=== PATIENT | male | born 2000 | race Caucasian/White ===

== ENCOUNTER 2020-07-21 20:10 | Emergency (ER) | payer OTHER ==
--- NOTE | 2020-07-21 20:57 | ED Physician Documentation ---
PD HPI HEENT - Stated complaint Stated Complaint: TOOTH PX - Chief complaint Chief Complaint: Heent - History obtained from History obtained from: Patient - History of Present Illness Timing - onset: Today Timing - duration: Hours Timing - details: Abrupt onset, Still present Location: Tooth Improves: Nothing Worsens: Other (nothing) Associated symptoms: No: Fever, Congestion, Rhinorrhea, Trismus, Unable to swallow, Swollen nodes, Facial swelling, Headache, Cough Similar symptoms before: Has not had sx before Recently seen: Not recently seen - Additional information Additional information: 19-year-old male has had a crown placed on a molar recently and the temporary crown that he has in place has come off. He has brought the crown with him and he called the advice line was told to come to the emergency department. The patient does not feel ill he does not have pain to the tooth or to the gum or face and he does have the crown with him. Review of Systems Constitutional: denies: Fever Eyes: denies: Decreased vision Ears: denies: Ear pain Nose: denies: Rhinorrhea / runny nose, Congestion Throat: reports: Other (Missing crown). denies: Dental pain / toothache, Sore throat Cardiac: denies: Chest pain / pressure, Palpitations Respiratory: denies: Dyspnea, Cough GI: denies: Abdominal Pain, Abdominal Swelling, Nausea, Vomiting : denies: Dysuria PD PAST MEDICAL HISTORY - Past Medical History Past Medical History: No - Past Surgical History Past Surgical History: No - Allergies Allergies/Adverse Reactions: Allergies Allergy/AdvReac Type Severity Reaction Status Date / Time codeine Allergy Hives Verified 07/21/20 20:18 diazepam [From Valium] Allergy Respiratory Verified 07/21/20 20:18 midazolam [From Versed] Allergy Respiratory Verified 07/21/20 20:18 - Social History Does the pt smoke?: No Smoking Status: Never smoker Does the pt drink ETOH?: Yes Does the pt have substance abuse?: No - Immunizations Immunizations are current?: Yes - POLST Patient has POLST: No PD ED PE NORMAL - Vitals Vital signs reviewed: Yes (hypertensive ) - General General: Alert and oriented X 3, No acute distress, Well developed/nourished - HEENT HEENT: Atraumatic, PERRL, EOMI, Other (There is a crown to #19 that is missing. The patient has the temporary and this fits snuggly to the socket. ) - Respiratory Respiratory: No respiratory distress - Derm Derm: Normal color, Warm and dry, No rash - Extremities Extremities: No deformity, No edema - Neuro Neuro: Alert and oriented X 3, pepper cutter 2-12 intact, No motor deficit, No sensory deficit, Normal speech Eye Opening: Spontaneous Motor: Obeys Commands Verbal: Oriented GCS Score: 15 - Psych Psych: Normal mood, Normal affect Results - Vitals Vitals: Vital Signs - 24 hr 07/21/20 07/21/20 07/21/20 20:18 20:24 20:58 Temperature 36.9 C 36.9 C 36.9 C Heart Rate 83 81 78 Respiratory 18 18 17 Rate Blood Pressure 168/89 H 155/81 H 135/79 H O2 Saturation 99 99 98 Oxygen O2 Source Room air PD MEDICAL DECISION MAKING - ED course Complexity details: considered differential ED course: 19-year-old male with a temporary crown that has been avulsed has the crown intact and this is placed back onto the tooth without cement. He knows this will come off and he will take this off [facility]He will follow-up with his dentist. Departure - Departure Disposition: 01 Home, Self Care Clinical Impression: Fracture of crown, enamel, and dentin of tooth without pulp exposure Condition: Stable Instructions: Crowns Tooth Tx Restore Follow-Up: [facility] [Provider Group] Comments: Follow-up with your dentist [facility] [place] [facility] tomorrow by telephone and expect to have some repair of this in the next week. Discharge Date/Time: 07/21/20 20:58
[2020-07-21 21:01] VITALS: BP 135/79
== END 2020-07-21 20:58 | disposition home or self-care (01) ==
LOC: ED 20:10
DX: K08.530 Fractured dental restorative material without loss of material (principal)
CPT/HCPCS: 99281; 99284

== ENCOUNTER 2020-11-28 13:54 | Emergency (ER) | payer OTHER ==
[2020-11-28 14:02] VITALS: BP 134/85
--- NOTE | 2020-11-28 15:19 | ED Physician Documentation ---
PD HPI BACK PAIN - Stated complaint Stated Complaint: LOW BACK PAIN - Chief complaint Chief Complaint: Back Pain - History obtained from History obtained from: Patient - History of Present Illness Timing - onset: Chronic Timing - duration: Years Timing - details: Gradual onset Pain level max: 8 Pain level now: 5 Location: Mid, Lower, Right, Left Quality: Pain, Spasm, Similar to prior episodes Associated symptoms: No: Fever, Weakness, Numbness, Incontinent of urine, Unable to urinate, Hematuria, Incontinent of stool Improves with: Rest Worsened by: Movement Contributing factors: Lifting. No: Twisting, Trauma, Anticoagulated, Cancer, IVDA, Out of meds - Additional information Additional information: Patient is a 21-year-old male who presents to the emergency department with chronic back pain. He is active duty [place]. Currently undergoing Physical therapy. He has had x-rays of his back. He states that he has increased pain when he is pushing heavy objects. Worse with movement, better with rest. He states Motrin is not helping. Has never been on muscle relaxants. No loss of bowel or bladder control. No recent injury. No fevers. No chills. No IV drug use. No numbness or tingling. Review of Systems Constitutional: denies: Fever, Chills GI: denies: Vomiting, Diarrhea Skin: denies: Rash Musculoskeletal: denies: Neck pain Neurologic: denies: Focal weakness, Numbness, Confused, Headache PD PAST MEDICAL HISTORY - Past Medical History Past Medical History: Yes Musculoskeletal: Chronic back pain - Past Surgical History Past Surgical History: No - Present Medications Home Medications: Ambulatory Orders Medication Instructions Recorded Confirmed Meloxicam [Mobic] 7.5 mg PO BID PRN #20 tablet 11/28/20 methocarbamoL [Robaxin] 500 mg PO Q6H PRN #20 tablet 11/28/20 methylPREDNISolone [Medrol] 4 mg PO DAILY #1 11/28/20 - Allergies Allergies/Adverse Reactions: Allergies Allergy/AdvReac Type Severity Reaction Status Date / Time codeine Allergy Hives Verified 11/28/20 13:57 diazepam [From Valium] Allergy Respiratory Verified 11/28/20 13:57 midazolam [From Versed] Allergy Respiratory Verified 11/28/20 13:57 - Living Situation Living Arrangement: reports: At home - Social History Does the pt smoke?: No Smoking Status: Never smoker Does the pt drink ETOH?: Yes Does the pt have substance abuse?: No - Immunizations Immunizations are current?: Yes - POLST Patient has POLST: No PD ED PE NORMAL - Vitals Vital signs reviewed: Yes - General General: Alert and oriented X 3, No acute distress, Well developed/nourished - HEENT HEENT: Moist mucous membranes - Neck Neck: Supple, no meningeal sign - Cardiac Cardiac: RRR, Strong equal pulses - Respiratory Respiratory: No respiratory distress, Clear bilaterally - Abdomen Abdomen: Soft, Non tender, Non distended - Back Back: No spinal TTP, Other (No spasm currently) - Derm Derm: Warm and dry - Extremities Extremities: No edema - Neuro Neuro: Alert and oriented X 3, No motor deficit, No sensory deficit, Other (Normal bilateral lower extremity patellar and ankle jerk reflexes. Normal great toe extension bilaterally. no saddle anesthesia) Eye Opening: Spontaneous Motor: Obeys Commands Verbal: Oriented GCS Score: 15 - Psych Psych: Normal mood, Normal affect Results - Vitals Vitals: Vital Signs - 24 hr 11/28/20 13:57 Temperature 36.5 C Heart Rate 77 Respiratory 16 Rate Blood Pressure 134/85 H O2 Saturation 98 Oxygen O2 Source Room air PD MEDICAL DECISION MAKING - ED course Complexity details: considered differential (No cauda equina, no spinal epidural abscess, no fracture, no aortic dissection or evidence of aneursym rupture), d/w patient ED course: 20-year-old male with chronic back pain. No evidence of cauda equina, epidural abscess. No evidence of fracture. No indication for imaging. Normal neuro exam. Will place on meloxicam, Robaxin and Medrol Dosepak for home. We will have him follow-up with his doctor for further care. We will have him continue his physical therapy as well. No indication for emergent MRI. Patient counseled regarding signs and symptoms for which I believe and urgent re- evaluation would be necessary. Patient with good understanding of and agreement to plan and is comfortable going home at this time This document was made in part using voice recognition software. While efforts are made to proofread this document, sound alike and grammatical errors may occur. Departure - Departure Disposition: 01 Home, Self Care Clinical Impression: Back spasm Chronic back pain Qualifiers: Back pain location: low back pain Back pain laterality: bilateral Sciatica presence: without sciatica Qualified Code(s): M54.5 - Low back pain; G89.29 - Other chronic pain Condition: Good Instructions: ED Spasm Back No Trauma, ED Neck Back Pain General Follow-Up: your,doctor in 1 week [Other] Prescriptions: methylPREDNISolone [Medrol] 4 mg PO DAILY #1 Meloxicam [Mobic] 7.5 mg PO BID PRN #20 tablet PRN Reason: Pain methocarbamoL [Robaxin] 500 mg PO Q6H PRN #20 tablet PRN Reason: muscle spasm Comments: Follow-up with your doctor for further care. You can use the Robaxin as needed for spasm. The meloxicam should help with the pain. Continue to gently stretch your back and continue your physical therapy.
[2020-11-28] MEDS ORDERED: methocarbamoL 500 MG TABLET PO STA (15:27)
[2020-11-28] MEDS ORDERED: MELOXICAM 7.5 MG TABLET PO STA (15:27)
== END 2020-11-28 15:41 | disposition home or self-care (01) ==
LOC: ED 13:54
DX: M62.830 Muscle spasm of back (principal); G89.29 Other chronic pain
CPT/HCPCS: 99283; 99284; A9270

== ENCOUNTER 2020-12-27 12:14 | Outpatient (CLI) | payer OTHER ==
--- NOTE | 2020-12-27 13:13 | MRI Report ---
PROCEDURE: Lumbar Spine W/O INDICATIONS: Low back pain TECHNIQUE: Noncontrast sagittal T1 spin echo and T2 fast echo, sagittal STIR, axial T1 and T2 fast spin echo thr ough the lumbar spine. In cases with scoliosis, additional coronal T2 fast spin echo may be performe d. COMPARISON: None. FINDINGS: Image quality: Excellent. Alignment and Curvature: There is normal bony alignment. Bone Marrow: Marrow is of normal overall signal. No acute vertebral body compression fractures. Spinal Cord: Conus medullaris terminates at the normal level. Visualized cord demonstrates normal s ignal and size. Paraspinous Soft Tissues: No paravertebral masses. T12-L1: Normal in appearance. L1-L2: Normal in appearance. L2-L3: Normal in appearance. L3-L4: Mild disc desiccation and disc height loss without disc bulge or protrusion. No spinal canal or neural foraminal stenosis. L4-L5: Mild disc desiccation and disc height loss. No disc bulge or protrusion. No spinal canal steno sis or neural foraminal narrowing. L5-S1: Disc desiccation and disc height loss. Shallow disc bulge without mass effect upon the thecal sac or traversing S1 nerve roots. No neural foraminal stenosis. IMPRESSION: Minimal degenerative changes in the lower lumbar spine. No spinal canal stenosis, neural foraminal stenosis, or findings of focal nerve root impingement. No imaging explanation for low back pain. Reviewed by: Fernando Soria MD on 12/27/2020 1:12 PM PDT Approved by: Fernando Soria MD on 12/27/2020 1:12 PM PDT Station ID: [id number]
== END 2020-12-27 12:15 | disposition home or self-care (01) ==
LOC: DI 12:14
DX: M54.5 Low back pain (principal); M51.36 Other intervertebral disc degeneration, lumbar region; M51.37 Other intervertebral disc degeneration, lumbosacral region

== ENCOUNTER 2021-07-24 20:35 | Emergency (ER) | payer OTHER ==
--- OUTSIDE RECORDS SUMMARY | 2021-07-24 21:05 | EXTERNAL MEDICAL SUMMARY RPT | Continuity of Care Document ---
:2000 Author Organization [facility] Address [address] [place] [address] Phone Care Team Providers Name Role Phone Crew, Valentina Maciel Unavailable Unavailable Allergies No information. Encounters No information. Medications date description facility 20210719 Acetaminophen 325 MG / Hydrocodone Luci rtrate 5 MG Oral [facility] Tablet 20210719 tramadol hydrochloride 50 MG Oral Table t [facility] 20210719 {21 (Methylprednisolone 4 MG Oral Table t) } [facility] 20210719 Omeprazole 20 MG Enteric Coated Capsule [facility] Problems Procedures date description facility 20210719 [facility] Results No information. Vital Signs date measurement value source 20210719 weight_standard 104.33 lb 20210719 weight_metric 47.32 kg 20210719 temperature_standard 97.9 F 20210719 temperature_metric 36.61 C 20210719 respiration_rate 18 /min 20210719 height_standard 73 in 20210719 height_metric 185.42 cm 20210719 heart_rate 76 /min 20210719 BP_systolic 122 mm[Hg] 20210719 BP_diastolic 87 mm[Hg] 20210719 BMI 30.3 kg/m2
[2021-07-24 23:12] LABS: RAPID STREP SCREEN Negative (Negative)
--- NOTE | 2021-07-24 23:14 | XRAY Report ---
PROCEDURE: Chest 1 View X-Ray INDICATIONS: cough TECHNIQUE: One view of the chest was acquired. COMPARISON: None FINDINGS: Surgical changes and devices: None. Lungs and pleura: No pleural effusions or pneumothorax. Lungs are clear. Mediastinum: Mediastinal contours appear normal. Heart size is normal. Bones and chest wall: No suspicious bony lesions. Overlying soft tissues appear unremarkable. IMPRESSION: No acute cardiopulmonary disease process. Reviewed by: Carito Wright MD, PhD on 07/24/2021 11:13 PM PDT Approved by: Carito Wright MD, PhD on 07/24/2021 11:13 PM PDT Station ID: [id number]
--- NOTE | 2021-07-24 23:43 | ED Physician Documentation ---
PD HPI URI - Stated complaint Stated Complaint: BLOODY PHLEGM, SORE THRAOT, HEADACHE - Chief complaint Chief Complaint: Heent - History obtained from History obtained from: Patient - Additional information Additional information: Patient presenting for evaluation of sore throat,Productive cough of green sputum which has been blood-streaked And generalized malaise For 3 days. His significant other is in the emergency department with similar symptoms. He has been vaccinated for Covid and has had 2 recent negative Covid test today.He has been living in housing since January here and recently found out that his current residence has possible mold or mildew issues which is being remediated. He called the [facility] nurse advice line which encouraged the patient to come to the emergency department this evening for testing for possible mold exposure.Patient denies fever, chest pain, difficulty breathing. He does report a history of low back pain and is currently using steroids and anti-inflammatory medications for that. He denies abdominal pain, vomiting, diarrhea, numbness, focal weakness. Review of Systems Ten Systems: 10 systems reviewed and negative Constitutional: denies: Fever Nose: reports: Congestion Throat: reports: Sore throat Cardiac: denies: Chest pain / pressure, Palpitations Respiratory: denies: Dyspnea GI: denies: Abdominal Pain, Nausea, Vomiting : denies: Dysuria Skin: denies: Rash Musculoskeletal: reports: Back pain Neurologic: denies: Focal weakness, Numbness, Syncope PD PAST MEDICAL HISTORY - Past Medical History Musculoskeletal: Chronic back pain - Past Surgical History Past Surgical History: No - Present Medications Home Medications: Ambulatory Orders Medication Instructions Recorded Confirmed methylPREDNISolone [Medrol] 4 mg PO DAILY #1 11/28/20 07/24/21 HYDROcod/ACETAM 5/325 [[place] 5/325] 1 tab PO Q6HR PRN 07/24/21 07/24/21 Omeprazole Magnesium 20 mg PO DAILY 07/24/21 07/24/21 traMADol [Ultram] 50 mg PO BID PRN 07/24/21 07/24/21 - Allergies Allergies/Adverse Reactions: Allergies Allergy/AdvReac Type Severity Reaction Status Date / Time codeine Allergy Hives Verified 07/24/21 20:46 diazepam [From Valium] Allergy Respiratory Verified 07/24/21 20:46 midazolam [From Versed] Allergy Respiratory Verified 07/24/21 20:46 - Social History Does the pt smoke?: No Smoking Status: Never smoker Does the pt drink ETOH?: Yes Does the pt have substance abuse?: No - Immunizations Immunizations are current?: Yes - POLST Patient has POLST: No PD ED PE NORMAL - General General: Alert and oriented X 3, No acute distress, Well developed/nourished - HEENT HEENT: Atraumatic, PERRL, EOMI, Ears normal, Moist mucous membranes, Pharynx benign, Dentition benign, Other (No tonsillar exudate or signs of peritonsillar abscess, normal Voice, no trismus,Mild posterior pharyngeal erythema, No significant lymphadenopathy) - Neck Neck: Supple, no meningeal sign, No adenopathy - Cardiac Cardiac: RRR, No murmur, Strong equal pulses - Respiratory Respiratory: No respiratory distress, Clear bilaterally - Abdomen Abdomen: Normal bowel sounds, Non tender - Derm Derm: Normal color - Extremities Extremities: No deformity, No edema - Neuro Neuro: Alert and oriented X 3, No motor deficit, Normal speech - Psych Psych: Normal mood, Normal affect Results - Vitals Vitals: Vital Signs - 24 hr 07/24/21 07/24/21 20:42 23:54 Temperature 37 C 36.9 C Heart Rate 104 H 89 Respiratory 18 18 Rate Blood Pressure 150/87 H 144/80 H O2 Saturation 97 98 Oxygen O2 Source Room air - Labs Labs: Laboratory Tests 07/24/21 22:50 Group A Strep Rapid Negative PD MEDICAL DECISION MAKING - ED course ED course: Patient presenting for evaluation of sore throat and nasal congestion withProductive cough. Patient is concerned due to recent mold exposure.Patient is overall very well-appearing, has no signs of airway compromise and does not appear septic. Rapid strep is negative. He has additionally recently had 2 - Covid test.Chest x-ray is clear. His symptoms could be due to a viral process. I did encourage close follow-up with his primary care doctor, particularly if he is concerned about possible exposure to mold for further testing.Discussed continuing with supportive care. Departure - Departure Disposition: 01 Home, Self Care Clinical Impression: Sore throat, Suspected exposure to mold Condition: Stable Instructions: Allergens Mold, Sore Throats Self Care Comments: Your strep test was negative. Your sore throat could be caused by a number of factors including a viral illness.Please continue with supportive care recommendations as we discussed such as anti-inflammatory medications like ibuprofen and salt water gargle. Please also follow-up with your primary care doctor to discuss mold testing as this is not performed in the emergency department. Forms: Activity restrictions Discharge Date/Time: 07/24/21 23:54
[2021-07-24 23:56] VITALS: BP 144/80
== END 2021-07-24 23:54 | disposition home or self-care (01) ==
LOC: ED 20:35
DX: J02.9 Acute pharyngitis, unspecified (principal); Z77.120 Contact with and (suspected) exposure to mold (toxic)
CPT/HCPCS: 87070; 87430; 99282; 99284

== ENCOUNTER 2021-10-24 07:04 | Outpatient (CLI) | payer OTHER ==
--- NOTE | 2021-10-24 08:44 | MRI Report ---
PROCEDURE: Lumbar Spine W/O INDICATIONS: LOW BACK PAIN TECHNIQUE: Noncontrast sagittal T1 spin echo and T2 fast echo, sagittal STIR, axial T1 and T2 fast spin echo thr ough the lumbar spine. In cases with scoliosis, additional coronal T2 fast spin echo may be performe d. COMPARISON: None. FINDINGS: Image quality: Excellent. Alignment and Curvature: There is normal bony alignment. Bone Marrow: Marrow is of normal overall signal. No acute vertebral body compression fractures. Spinal Cord: Conus medullaris terminates at the L1-L2 level. Visualized cord demonstrates normal si gnal and size. Paraspinous Soft Tissues: No paravertebral masses. T12-L1: Normal in appearance. L1-L2: Normal in appearance. L2-L3: Normal in appearance. L3-L4: No canal stenosis or foraminal stenosis. L4-L5: Unchanged. Minimal disc bulge. No canal stenosis or foraminal stenosis. L5-S1: Unchanged. Disc desiccation and disc height loss. Disc bulge. No canal stenosis or foraminal stenosis. IMPRESSION: Stable findings. Mild degenerative change. No canal stenosis or foraminal stenosis. Reviewed by: Bernard Lynn MD on 10/24/2021 8:42 AM PDT Approved by: Bernard Lynn MD on 10/24/2021 8:42 AM PDT Station ID: [id number]
== END 2021-10-24 07:05 | disposition home or self-care (01) ==
LOC: DI 07:04
PROVIDERS: ATTEND Family Medicine
DX: M51.37 Other intervertebral disc degeneration, lumbosacral region (principal)

== ENCOUNTER 2021-12-10 17:42 | Emergency (ER) | payer OTHER ==
[2021-12-10] MEDS ORDERED: KETOROLAC 15 MG/ML VIAL IVP STA (18:11)
[2021-12-10] MEDS ORDERED: SODIUM CHLORIDE 0.9% 1,000 ML IV STA (18:11)
[2021-12-10] MEDS ORDERED: HYDROmorphone 1 MG/ML CARPUJECT IVP STA (18:11)
[2021-12-10] MEDS ORDERED: ACETAMINOPHEN 500 MG TABLET PO STA (18:12)
--- NOTE | 2021-12-10 18:14 | ED Physician Documentation ---
History of Present Illness - Stated complaint Stated Complaint: COVID SYMPTOMS - Chief complaint Chief Complaint: General - History obtained from History obtained from: Patient - Additonal information Additional information: Otherwise healthy 21-year-old gentleman with chronic back pain, active duty [place]. He is vaccinated against COVID. His got sick with COVID about 3 days ago and is improving. He became acutely ill this morning with fevers, chills, body aches, headache. Minimal sore throat or cough. Review of Systems Ten Systems: 10 systems reviewed and negative Constitutional: reports: Fever, Chills, Myalgias, Fatigue Throat: denies: Sore throat Respiratory: denies: Dyspnea, Cough PD PAST MEDICAL HISTORY - Past Medical History Past Medical History: Yes Cardiovascular: None Respiratory: None Neuro: Headaches Endocrine/Autoimmune: None GI: GERD : None HEENT: None Psych: None Musculoskeletal: Chronic back pain Derm: None - Past Surgical History Past Surgical History: No - Present Medications Home Medications: Ambulatory Orders Medication Instructions Recorded Confirmed HYDROcod/ACETAM 5/325 [[place] 5/325] 1 tab PO Q6HR PRN 07/24/21 12/10/21 Omeprazole Magnesium 20 mg PO DAILY 07/24/21 12/10/21 traMADol [Ultram] 50 mg PO BID PRN 07/24/21 12/10/21 Cyclobenzaprine [Flexeril] 10 mg PO TID PRN 12/10/21 12/10/21 Meloxicam [Mobic] 15 mg PO DAILY PRN 12/10/21 12/10/21 Zolmitriptan [Zomig] 5 mg PO DAILY PRN 12/10/21 12/10/21 - Allergies Allergies/Adverse Reactions: Allergies Allergy/AdvReac Type Severity Reaction Status Date / Time codeine Allergy Hives Verified 12/10/21 17:48 diazepam [From Valium] Allergy Respiratory Verified 12/10/21 17:48 midazolam [From Versed] Allergy Respiratory Verified 12/10/21 17:48 - Social History Does the pt smoke?: No Smoking Status: Never smoker Does the pt drink ETOH?: Yes Does the pt have substance abuse?: No - Immunizations Immunizations are current?: Yes - POLST Patient has POLST: No PD ED PE NORMAL - Vitals Vital signs reviewed: Yes - General General: Alert and oriented X 3, No acute distress - HEENT HEENT: PERRL, EOMI - Neck Neck: Supple, no meningeal sign, No bony TTP - Cardiac Cardiac: Other (Tachycardic, regular, no murmur) - Respiratory Respiratory: No respiratory distress, Clear bilaterally - Abdomen Abdomen: Non tender - Back Back: No CVA TTP, No spinal TTP - Derm Derm: Normal color, Warm and dry, No rash - Neuro Neuro: Alert and oriented X 3, Normal speech Results - Vitals Vitals: Vital Signs - 24 hr 12/10/21 12/10/21 12/10/21 17:48 17:53 19:14 Temperature 38.5 C H 38.5 C H 37.7 C Heart Rate 121 H 121 H 100 Respiratory 20 20 16 Rate Blood Pressure 124/86 H 124/86 H 123/74 O2 Saturation 97 97 98 Oxygen O2 Source Room air - Labs Labs: Laboratory Tests 12/10/21 18:32 Sodium 137 Potassium 3.4 L Chloride 101 Carbon Dioxide 27 Anion Gap 9.0 BUN 12 Creatinine 1.2 Estimated GFR (MDRD) 75 L Glucose 100 Calcium 9.1 PD MEDICAL DECISION MAKING - ED course ED course: 21-year-old gentleman with kind of a classic viral syndrome with his having COVID. He is likely positive. Given his young age and vaccinated status he was not offered antivirals, noting that he is also without underlying significant health issue. He received some IV fluids and antipyretics and pain medication here with improvement in both how he was feeling as well as his vital signs. Departure - Departure Disposition: 01 Home, Self Care Clinical Impression: Viral syndrome Condition: Good Record reviewed to determine appropriate education?: Yes Instructions: ED Viral Syndrome Comments: You have a Covid test pending. You need to self quarantine until the result is done and negative. Do not leave your house. Do not get near anybody. The results should be done in 48 to 72 hours. We will call with a positive result, the fastest way to get a negative result for confirmation though is to go to the hospital website at [email or web address], click on the my [employer] tab and sign up for the patient portal. Return for new or worsening symptoms. Tylenol and/or ibuprofen as needed for aches and pains which should hopefully be much better after initial treatment tonight. Forms: Activity restrictions
[2021-12-10 18:47] LABS: CALCIUM 9.1 mg/dL (8.5-10.3); CREATININE 1.2 mg/dL (0.6-1.2); POTASSIUM 3.4 mmol/L (3.5-5.0)
[2021-12-10 19:15] VITALS: BP 123/74
[2021-12-10] MEDS ORDERED: oxyCODONE/ACET 5/325 Prepack 4 PO STA (19:17)
== END 2021-12-10 19:25 | disposition home or self-care (01) ==
LOC: ED 17:42
DX: U07.1 COVID-19 (principal); B34.9 Viral infection, unspecified
CPT/HCPCS: 36415; 80048; 87635; 96374; 99282; 99283; A9270; J1170

== ENCOUNTER 2022-02-01 09:07 | Outpatient (CLI) | payer OTHER ==
[2022-02-01 09:50] VITALS: BP 124/70
--- NOTE | 2022-02-01 09:50 | SLEEP CARE CONSULTATION ---
Information from patient questionnaire entered by Sasha Hay MA. I have reviewed and concur with the information entered by Sasha Hay MA. This document represents the service I personally performed and the decisions made by me, Lucy Mendoza ARNP. History of Present Illness Service Date and Time: 02/01/2022 0907 Reason for Visit: New patient Chief Complaint: reports: Insomnia, Unrefreshed sleep, Snoring, Excessive daytime sleepiness, Frequent awakenings at night Date of Onset: 2020 Usual bedtime: 10 PM Time it takes to fall asleep: 3 HRS Snores at night: Yes Observed to quit breathing while asleep: No Sleeps alone due to snoring: No Number of times waking at night: 3 Reasons for waking at night: reports: Pain (chronic back pain), Other (UNKNOWN). denies: Choking, Snoring, Gasping for air Toss, Turn, or Twitch while sleeping: Yes Recalls having dreams: Yes (sometimes) Usually gets out of bed at: 6AM Feels refreshed in the morning: No Morning headache: Yes (1 time a week) Sleepy or fatigued during the day: Yes Ever fallen asleep while driving: No Takes day naps: Yes (most days he will try daily nap; 30 mins to 2 hours) Dreams during day naps: No Prior sleep studies: No Additional HPI information: I had the pleasure of seeing SAQIB LEVI today regarding the possibility of him having a sleep disorder. His current complaints are unrefreshed sleep, excessive daytime sleepiness, frequent night awakenings, insomnia and snoring. He feels his trouble to sleep is getting worse. He has taken classes on getting good sleep but he will wake up frequently at night and has trouble falling asleep at night onset. He does not feel rested after sleeping. He has tried many over the counter and prescribed medications to help him sleep like Lunesta and Trazodone but they have not helped him. He has had sleep paralysis that happens, some nights more than once, other just once. He states about a month ago he is getting an "overwhelming need to sleep" and he will have to take a nap for even 30 minutes. He will be extremely tired if he doesn't go to sleep but not be able to go to sleep that night. He has tried to improve his sleep hygiene in many ways but still cannot seem to sleep well. - Parasomnia Symptoms Ever been unable to move upon waking from sleep: Yes (weekly) Walks in sleep: No Talks in sleep: Yes Ever acted out dreams in sleep: No Ever felt weak in the knees when startled or emotional: No Bothered by creepy, crawly, restless sensations in legs: Yes (SOMETIMES; only during sleep paralysis) Problems with memory or concentration: Yes (memory is bad; concentration at work fine; games or TV causes him to doze ) Subjective Initial [place] Sleepiness Scale score: 16 (2021) Past Medical History Past Medical History: reports: Anxiety, Depression, GERD, Other (Chronic back pain) Social History The patient's occupation is a AM. Patient is and lives in . Have you smoked in the past 12 months: No Alcohol use: Yes Alcohol amount and frequency: 10 DRINKS A MONTH Caffeine use: Yes Caffeine amount and frequency: ONCE A WEEK Family History Family history of sleep disordered breathing: No Family Hx Sleep Apnea: Father: Snoring Allergies and Home Medications Drug allergies reviewed: Yes (Versed; Valium; pt just did challenge for codiene and did not have reaction) Home medication list reviewed: Yes Allergy and home medication list: Allergies codeine Allergy (Verified 12/10/21 17:48) Hives diazepam [From Valium] Allergy (Verified 12/10/21 17:48) Respiratory midazolam [From Versed] Allergy (Verified 12/10/21 17:48) Respiratory Medications: Hydrocodone-acetaminophen 5/325 mg, prn Wellbutrin XL 150 mg, daily Zomig 5 mg, prn Review of Systems Weight gain over past 5 years: 55 Gastrointestinal: reports: heartburn Neurological: reports: headaches Psychiatric: reports: anxiety, depression Ear/Nose/Throat: reports: dry mouth/throat, wisdom teeth removed. denies: tonsillectomy Endocrine: reports: increased appetite Musculoskeletal: reports: neck pain, back pain, muscle pain or cramping, mobility problems Immunologic: denies: allergies to food or environment Physical Exam Vital signs obtained and entered by: AMMY DEWEY Blood Pressure: 124/70 (LEFT ARM) Cuff size: LARGE Heart Rate: 97 O2 Saturation: 97 Height: 6 ft 3 in Weight: 239 lb Weight change since last visit: 55 LBS WIEGHT GAIN Body Mass Index: 29.8 BMI Classification: Overweight Neck circumference: 18 Mouth and throat: narrow oropharynx Soft palate: long Hard palate: normal Uvula: normal Uvula visualization: 25% Mallampati Class III Tongue: enlarged in size with teeth sanchez on lateral edges Tonsils: 2+ Neck: normal w/o lymphadenopathy or thyromegaly Heart: regular rate and rhythm Lungs: clear bilaterally Impression and Plan 1. Suspected Obstructive Sleep Apnea-Hypopnea Syndrome, as suggested by a history of loud and irregular snoring, frequent awakening during the night, unrefreshed sleep, cognitive impairment, and excessive daytime sleepiness. Narrow oropharynx and obesity are common predisposing factors for obstructive sleep apnea-hypopnea syndrome. I recommend proceeding to polysomnography to confirm the diagnosis and to assess severity. If the patient has significant sleep disordered breathing, a manual CPAP titration study will also be performed to find the optimal treatment pressure. I informed the patient of what the sleep studies involve and after some discussion, obtained agreement to proceed. The pathophysiology of obstructive sleep apnea-hypopnea syndrome was discussed with the patient and health risks of cardiovascular and cerebrovascular disease if not treated. Risks of drowsy driving discussed in detail and patient advised to avoid long distance driving and to pullman conductor at the first sign of drowsiness. Patient agreed to plan. * Schedule polysomnography * Avoid long distance driving or driving when feeling sleepy. * Avoid alcohol, sedative and muscle relaxant around bedtime. * Attempt to lose weight. * Review instructions provided by trained office staff on how to prepare for the sleep study. * Return for follow-up after sleep study completed. Counseling Topics: Weight loss health impact Visit Type: In Office Time Spent with Patient (minutes): 35 Provider Statement: I spent 100% of the Face to Face Visit with the patient with greater than 50% spent counseling the patient and coordination of care.
== END 2022-02-01 09:08 | disposition home or self-care (01) ==
LOC: SC 09:07
PROVIDERS: ATTEND Nurse Practitioner Family
DX: R06.83 Snoring (principal); G47.8 Other sleep disorders; R51.9 Headache, unspecified; G47.10 Hypersomnia, unspecified; R53.83 Other fatigue; F32.A Depression, unspecified; E66.3 Overweight; Z68.29 Body mass index [BMI] 29.0-29.9, adult
CPT/HCPCS: 99203; 99212

== ENCOUNTER 2022-02-18 19:24 | Outpatient (CLI) | payer OTHER | END 2022-02-18 19:25 | disposition home or self-care (01) | LOC: SC 19:24 | PROVIDERS: ATTEND Nurse Practitioner Family | DX: R06.83 Snoring (principal); G47.8 Other sleep disorders; R53.83 Other fatigue; G47.10 Hypersomnia, unspecified | CPT/HCPCS: 95810 ==

== ENCOUNTER 2022-03-12 14:06 | Outpatient (CLI) | payer OTHER ==
[2022-03-12 15:01] VITALS: BP 128/80
--- NOTE | 2022-03-12 15:01 | SLEEP CARE CONSULTATION ---
Information from patient questionnaire entered by Zabrina Barnes. I have reviewed and concur with the information entered by Zabrina Barnes. This document represents the service I personally performed and the decisions made by me, Adali Fontenot MD, [facility]. History of Present Illness Service Date and Time: 03/12/2022 1406 Initial [place] Sleepiness Scale score: 16 (2021) Current [place] Sleepiness Scale score: 16 (03/12/2022) Additional HPI information: Mr. Tay returned for follow up of the sleep study he had on 02/18/2022. The polysomnography showed that the patient had normal sleep efficiency. The sleep architecture was relatively normal considering the first-night effect. Respiratory monitoring showed no evidence sleep disordered breathing (AHI = 0.4) or hypoxia ([place] oxygen saturation of 91%). The patient slept adequately in supine position (supine AHI = 0.5; non-supine = 0.00). Snore was light in intensity. There was no significant periodic leg movement of sleep. Cardiac rhythm was normal sinus rhythm without significant arrhythmia. No abnormal behavior (parasomnia) observed during the night. The patient was informed of these findings. I explained to him that the sleep study was normal. He states that he slept well in the sleep lab because he did not nap that there (we instructed him not too). Sleep Study - Results Type of Sleep Study: Polysomnography (COMPLETED 02-18-22) Prior sleep studies: No Allergies and Home Medications Drug allergies reviewed: Yes Home medication list reviewed: Yes Allergy and home medication list: Allergies codeine Allergy (Verified 12/10/21 17:48) Hives diazepam [From Valium] Allergy (Verified 12/10/21 17:48) Respiratory midazolam [From Versed] Allergy (Verified 12/10/21 17:48) Respiratory Review of Systems Review of systems same as previous: Yes Physical Exam Vital signs obtained and entered by: ZABRINA Bennett MA Blood Pressure: 128/80 (left arm) Cuff size: regular Heart Rate: 92 O2 Saturation: 97 Height: 6 ft 3 in Weight: 240 lb 6.4 oz Body Mass Index: 30.0 BMI Classification: Obese Impression and Plan IMPRESSION: 1. Hypersomnia, due to insomnia and dependency on daytime naps. The patient reports taking 1 2 hours to fall asleep when he goes to bed at 10 pm. He spontaneously gets up at 6 am. He takes two 30-minute naps during the day, including one at work. His fatigue may be related to depression. PLAN: 1. Avoid daytime naps altogether. 2. Follow up with his primary care provider regarding depression. 3. Return for a follow up on as needed basis (he is relocating to [place] soon). Follow up with [facility] Care in: as needed Follow up with: PCP Visit Type: In Office Time Spent with Patient (minutes): 15 Provider Statement: I spent 100% of the Face to Face Visit with the patient with greater than 50% spent counseling the patient and coordination of care.
== END 2022-03-12 14:07 | disposition home or self-care (01) ==
LOC: SC 14:06
PROVIDERS: ATTEND Nurse Practitioner Family
DX: G47.10 Hypersomnia, unspecified (principal); G47.00 Insomnia, unspecified
CPT/HCPCS: 99212